=== PATIENT | male | born 2000 | race African-American/Black ===

== ENCOUNTER 2020-11-29 19:34 | Emergency (ER) | payer OTHER ==
[~2020-11-29] VITALS: Ht 170.2 cm; Wt 89.8 kg
[~2020-11-29 19:34] MED LIST: ADDERALL XR 2020 MG; ADVIL100 M1; ZANTAC 2525 MG PO
[2020-11-29] MEDS ORDERED: IBU800 MG PO (20:30)
== END 2020-11-29 20:50 | disposition home or self-care (01) ==
LOC: ER 19:34
DX: S90.121A Contusion of right lesser toe(s) without damage to nail, initial encounter (principal)

== ENCOUNTER 2021-01-18 15:30 | Emergency (ER) | payer OTHER ==
[~2021-01-18] VITALS: Ht 170.2 cm; Wt 88.5 kg
[~2021-01-18 15:30] MED LIST changes: +IBU800 MG PO
== END 2021-01-18 22:33 | disposition home or self-care (01) ==
LOC: ER 15:30
DX: S70.312A Abrasion, left thigh, initial encounter (principal); S80.12XA Contusion of left lower leg, initial encounter; S70.02XA Contusion of left hip, initial encounter; S30.1XXA Contusion of abdominal wall, initial encounter; V29.88XA Motorcycle rider (driver) (passenger) injured in other specified transport accidents, initial encounter; Y93.89 Activity, other specified; Y92.488 Other paved roadways as the place of occurrence of the external cause; Y99.8 Other external cause status